=== PATIENT | male | born 1945 | race Caucasian/White ===

== ENCOUNTER 2021-02-03 12:33 | Outpatient (CLI) | payer MEDICARE, BC | END 2021-02-03 12:34 | disposition home or self-care (01) | LOC: CSHMRI 12:33 | PROVIDERS: ATTEND Orthopaedic Surgery | DX: M25.562 Pain in left knee (principal); S83.242A Other tear of medial meniscus, current injury, left knee, initial encounter; M22.2X2 Patellofemoral disorders, left knee; M25.462 Effusion, left knee ==

== ENCOUNTER 2025-08-19 17:41 | Observation (INO) | payer MEDICARE, OTHER ==
[~2025-08-19 17:41] MED LIST: Iopamidol 370 76% 100 ML VIAL ONE
[2025-08-19 18:31] LABS: #Basophils 0.03 10x3/uL (0.0-0.2); #Eosinophils 0.16 10x3/uL (0.0-0.5); #Monocytes 0.94 10x3/uL (0.0-1.1); #Neutrophils 5.07 10x3/uL (1.5-8.4); %Basophils 0.4 % (0.0-2.0); %Eosinophils 2.3 % (0.0-6.0); %Lymphocytes 11.5 % (18.0-47.0); %Monocytes 13.4 % (0.0-10.0); %Neutrophils 72.1 % (40.0-75.0); Hematocrit 37.9 % (38.8-50.0); Hemoglobin 13.0 g/dL (13.5-17.5); Mean Corpuscular Hemoglobin 31.9 pg (27.0-33.0); Mean Corpuscular Volume 92.9 fL (81.2-95.1); Platelet Count 243 10x3/uL (150-450); Red Blood Cell (RBC) Count 4.08 10x6/uL (4.32-5.72); White Blood Cell (WBC) Count 7.03 10x3/uL (3.5-10.5)
[2025-08-19 18:47] LABS: ALT (SGPT) 17 U/L (Less than 45); AST (SGOT) 19 U/L (11-34); Albumin 4.1 g/dL (3.1-4.5); Alkaline Phosphatase 44 U/L (40-110); Anion Gap 13 mmol/L (10-20); BUN (Urea Nitrogen) 13 mg/dL (8.4-25.7); Bilirubin, Total 0.6 mg/dL (0.3-1.2); Calc. Creatinine Clearance 0 mL/min (70-130); Calcium 10.2 mg/dL (7.8-10.44); Carbon Dioxide 24 mmol/L (23-31); Chloride 104 mmol/L (98-107); Globulin 2.4 g/dL (2.4-3.5); Glucose 120 mg/dL (83-110); Potassium 3.8 mmol/L (3.5-5.1); Sodium 137 mmol/L (136-145)
[2025-08-19 18:53] LABS: Troponin I Less than 0.010 ng/mL (< 0.028)
[2025-08-19 18:56] LABS: INR-International Normal Ratio 1.1; PTT 26.4 sec (22.0-33.0); Prothrombin Time 11.9 sec (9.5-12.1)
[2025-08-19] MEDS ORDERED: Bacitracin 1 PK ONE (20:59)
[2025-08-19] MEDS ORDERED: Calcium Carbonate 500 MG ChewTAB PO PRN (21:07)
[2025-08-19] MEDS ORDERED: Acetaminophen 325 MG TAB PO PRN (21:07)
[2025-08-19] MEDS ORDERED: Ondansetron PF 4 MG/2 ML Vial IVP PRN (21:07)
[2025-08-19] MEDS ORDERED: Electrolyte Replacement Protocol 1 EACH FS SCH (21:15)
[2025-08-19] MEDS ORDERED: Potassium Chloride 20 MEQ in Premix 1 BAG IVPB PRN (22:30)
[2025-08-19] MEDS ORDERED: Magnesium 2 GM/50 ML(in water) 2 GM in Premix 1 BAG IVPB PRN (22:30)
[2025-08-19] MEDS ORDERED: PHOS-NAK 1 PKT PACK PO PRN (22:30)
[2025-08-19 22:48] VITALS: BMI 23.7
[2025-08-20 04:53] LABS: #Basophils 0.04 10x3/uL (0.0-0.2); #Eosinophils 0.24 10x3/uL (0.0-0.5); #Monocytes 1.16 10x3/uL (0.0-1.1); #Neutrophils 4.83 10x3/uL (1.5-8.4); %Basophils 0.6 % (0.0-2.0); %Eosinophils 3.3 % (0.0-6.0); %Lymphocytes 12.4 % (18.0-47.0); %Monocytes 16.2 % (0.0-10.0); %Neutrophils 67.2 % (40.0-75.0); Hematocrit 38.5 % (38.8-50.0); Hemoglobin 13.1 g/dL (13.5-17.5); Mean Corpuscular Hemoglobin 31.7 pg (27.0-33.0); Mean Corpuscular Volume 93.2 fL (81.2-95.1); Platelet Count 243 10x3/uL (150-450); Red Blood Cell (RBC) Count 4.13 10x6/uL (4.32-5.72); White Blood Cell (WBC) Count 7.18 10x3/uL (3.5-10.5)
[2025-08-20 05:06] LABS: ALT (SGPT) 14 U/L (Less than 45); AST (SGOT) 19 U/L (11-34); Albumin 4.0 g/dL (3.1-4.5); Alkaline Phosphatase 49 U/L (40-110); Anion Gap 10 mmol/L (10-20); BUN (Urea Nitrogen) 11 mg/dL (8.4-25.7); Bilirubin, Total 0.5 mg/dL (0.3-1.2); Calc. Creatinine Clearance 82 mL/min (70-130); Calcium 9.4 mg/dL (7.8-10.44); Carbon Dioxide 28 mmol/L (23-31); Chloride 105 mmol/L (98-107); Globulin 2.6 g/dL (2.4-3.5); Glucose 90 mg/dL (83-110); Potassium 3.6 mmol/L (3.5-5.1); Sodium 139 mmol/L (136-145)
[2025-08-20 05:09] LABS: Troponin I 0.021 ng/mL (< 0.028)
[2025-08-20] MEDS: Losartan 50 MG TAB PO SCH (09:53)
[2025-08-20] MEDS ORDERED: Guaifenesin DM 100-10/5 ML UDCUP PO PRN (17:57)
[2025-08-20] MEDS ORDERED: cefTRIAXone\\ROCEPHIN 1 GM in Sodium Chloride 0.9% 100 ML IVPB SCH (18:00)
[2025-08-20] MEDS: Enoxaparin 40 MG (0.4 mL) SYRINGE SC SCH (20:03)
[2025-08-20] MEDS: Amoxicillin/Potassium Clav 875 MG TAB PO SCH (20:03)
[2025-08-20] MEDS: Benzonatate 100 MG CAP PO SCH (20:03)
[2025-08-21 05:59] LABS: #Basophils 0.03 10x3/uL (0.0-0.2); #Eosinophils 0.33 10x3/uL (0.0-0.5); #Monocytes 1.15 10x3/uL (0.0-1.1); #Neutrophils 4.37 10x3/uL (1.5-8.4); %Basophils 0.4 % (0.0-2.0); %Eosinophils 4.9 % (0.0-6.0); %Lymphocytes 12.0 % (18.0-47.0); %Monocytes 17.2 % (0.0-10.0); %Neutrophils 65.4 % (40.0-75.0); Hematocrit 37.0 % (38.8-50.0); Hemoglobin 12.4 g/dL (13.5-17.5); Mean Corpuscular Hemoglobin 31.3 pg (27.0-33.0); Mean Corpuscular Volume 93.4 fL (81.2-95.1); Platelet Count 242 10x3/uL (150-450); Red Blood Cell (RBC) Count 3.96 10x6/uL (4.32-5.72); White Blood Cell (WBC) Count 6.69 10x3/uL (3.5-10.5)
[2025-08-21 06:17] LABS: Anion Gap 10 mmol/L (10-20); BUN (Urea Nitrogen) 9 mg/dL (8.4-25.7); Calc. Creatinine Clearance 86 mL/min (70-130); Calcium 8.9 mg/dL (7.8-10.44); Carbon Dioxide 25 mmol/L (23-31); Chloride 107 mmol/L (98-107); Glucose 101 mg/dL (83-110); Potassium 4.1 mmol/L (3.5-5.1); Sodium 138 mmol/L (136-145)
[2025-08-21 08:58] VITALS: TEMP 98.2
[2025-08-21] MEDS: Amoxicillin/Potassium Clav 875 MG TAB PO SCH (08:59)
[2025-08-21 09:20] VITALS: BP 135/55
== END 2025-08-21 11:15 | disposition home or self-care (01) ==
LOC: CSHERS 17:41 → CSHTELE 20:42
PROVIDERS: ADMIT Student in an Organized Health Care Education/Training Program; ATTEND Hospitalist
PROC: B24BZZZ Ultrasonography of Heart with Aorta (ICD-10-PCS; principal; 2025-08-20)
DX: R55 Syncope and collapse (principal); I07.1 Rheumatic tricuspid insufficiency; S01.81XA Laceration without foreign body of other part of head, initial encounter; I10 Essential (primary) hypertension; E78.5 Hyperlipidemia, unspecified; N40.0 Benign prostatic hyperplasia without lower urinary tract symptoms; J32.9 Chronic sinusitis, unspecified; Z98.49 Cataract extraction status, unspecified eye; Z79.899 Other long term (current) drug therapy; W19.XXXA Unspecified fall, initial encounter
CPT/HCPCS: 70496; 70498; 70551; 71045; 72141; 80048; 80053 ×2; 84484 ×2; 85025 ×3; 85379; 85610; 85730; 93005; 93306; 93880; 94760; 96372; 99285; G0378 ×4; J1650; Q9967; 36415